=== PATIENT | female | born 1950 | race Caucasian/White ===

== ENCOUNTER → 2017-11-17 | Outpatient (CLI) | payer BC, MEDICARE ==
--- NOTE | 2017-11-17 13:07 | XR ---
EXAMINATION TYPE: XR chest 2V DATE OF EXAM: 11/17/2017 COMPARISON: NONE HISTORY: Shortness of breath TECHNIQUE: Frontal and lateral views of the chest are obtained. FINDINGS: Scattered senescent parenchymal changes noted. Hyperinflation compatible with COPD. No evidence for infiltrate. No evidence for atelectasis. Heart size is stable. Mediastinal structures are stable and grossly unremarkable. No evidence for hilar prominence. Degenerative changes dorsal spine. IMPRESSION: 1. No evidence for acute pulmonary disease.
== END | disposition home or self-care (01) ==
LOC: RADXRMAIN 12:40
PROVIDERS: ATTEND Physician Assistant
DX: J44.9 Chronic obstructive pulmonary disease, unspecified (principal)
CPT/HCPCS: 71046

== ENCOUNTER 2019-10-14 03:18 | Observation (INO) | payer MEDICARE, BC ==
[2019-10-14] MEDS ORDERED: FAMOTIDINE 20 MG/2 ML VIAL IV STA (03:35)
[2019-10-14] MEDS ORDERED: MAG HYDROX/AL HYDROX/SIMETH 30 ML, HYOSCYAMINE ELIXIR 10 ML, LIDOCAINE VISCOUS 2% 10 ML PO STA ×3 (03:35)
--- NOTE | 2019-10-14 03:37 | ED ---
General Adult HPI - General Chief complaint: Chest Pain Stated complaint: Chest Pain Time Seen by Provider: 10/14/19 03:20 Source: patient, EMS, RN notes reviewed, old records reviewed Mode of arrival: ambulatory Limitations: no limitations - History of Present Illness Initial comments: 69-year-old female history of COPD presenting for evaluation of substernal chest pain. Pain is described as a burning in nature, worse with lying flat. Patient does have history of gastric reflux. She states this pain is been ongoing for at least a month but was more severe tonight. She reports associated dyspnea. No vomiting. No abdominal pain. No known history of coronary artery disease. - Related Data Home Medications Medication Instructions Recorded Confirmed Albuterol Sulfate [Ventolin HFA] 2 puff INHALATION RT-Q4H PRN 10/14/19 10/14/19 EPINEPHrine (Auto Inject) [Epipen] 0.3 mg IM ONCE PRN 10/14/19 10/14/19 Fluticasone Nasal [place] [Flonase 1 spr EA NOSTRIL DAILY PRN 10/14/19 10/14/19 Nasal [place]] Fluticasone/Vilanterol [Breo 1 puff INHALATION RT-DAILY 10/14/19 10/14/19 Ellipta 100-25 Mcg Inhaler] Allergies Allergy/AdvReac Type Severity Reaction Status Date / Time bee venom protein (honey bee) Allergy Anaphylaxis Verified 10/14/19 08:07 Review of Systems ROS Statement: Those systems with pertinent positive or pertinent negative responses have been documented in the HPI. ROS Other: All systems not noted in ROS Statement are negative. Past Medical History Past Medical History: COPD History of Any Multi-Drug Resistant Organisms: None Reported Past Surgical History: Orthopedic Surgery, Tonsillectomy Past Psychological History: No Psychological Hx Reported Smoking Status: Current every day smoker Past Alcohol Use History: None Reported Past Drug Use History: Marijuana - Past Family History Father Family Medical History: Coronary Artery Disease (CAD) Mother Family Medical History: Cancer Additional Family Medical History / Comment(s): breast CA General Exam Limitations: no limitations General appearance: alert, in no apparent distress Head exam: Present: atraumatic, normocephalic Eye exam: Present: normal appearance, PERRL ENT exam: Present: normal exam Neck exam: Present: normal inspection. Absent: tenderness Respiratory exam: Present: decreased breath sounds. Absent: respiratory distress Cardiovascular Exam: Present: regular rate, normal rhythm GI/Abdominal exam: Present: soft. Absent: distended, tenderness, guarding Extremities exam: Present: normal inspection, normal capillary refill. Absent: pedal edema, calf tenderness Neurological exam: Present: alert, oriented X3, CN II-XII intact. Absent: motor sensory deficit Psychiatric exam: Present: normal affect, normal mood Skin exam: Present: warm, dry, intact. Absent: cyanosis, diaphoretic Course Vital Signs 10/14/19 10/14/19 10/14/19 03:20 03:29 04:29 Temperature 97.8 F Pulse Rate 69 62 60 Respiratory 24 20 20 Rate Blood Pressure 123/74 120/93 104/60 O2 Sat by Pulse 96 95 95 Oximetry 10/14/19 10/14/19 10/14/19 04:56 05:06 05:25 Temperature Pulse Rate 56 L 58 L 58 L Respiratory 20 Rate Blood Pressure 113/88 O2 Sat by Pulse 95 Oximetry EKG Findings - EKG Comments: EKG Findings:: EKG: Sinus bradycardia, rate of 59, NC interval 136, QRS duration 74, QTC 421, no ST segment elevation. Medical Decision Making - Medical Decision Making 69-year-old female with substernal chest pain, ongoing for the past one month but worse this evening. EKG is sinus rhythm without ST segment elevation. Chest x-ray showing some hyperinflation no acute findings. She has normal CBC, normal CMP, negative initial troponin. Given her risk factor she will be kept in observation for serial cardiac enzymes, telemetry, cardiology consultation. - Lab Data Result diagrams: 10/14/19 03:31 10/14/19 03:31 Lab Results 10/14/19 10/14/19 10/14/19 Range/Units 03:31 03:31 03:31 WBC 7.2 (3.8-10.6) k/uL RBC 4.47 (3.80-5.40) m/uL Hgb 13.1 (11.4-16.0) gm/dL Hct 41.0 (34.0-46.0) % MCV 91.6 (80.0-100.0) fL MCH 29.4 (25.0-35.0) pg MCHC 32.1 (31.0-37.0) g/dL RDW 12.7 (11.5-15.5) % Plt Count 312 (150-450) k/uL Neutrophils % 64 % Lymphocytes % 24 % Monocytes % 6 % Eosinophils % 2 % Basophils % 1 % Neutrophils # 4.6 (1.3-7.7) k/uL Lymphocytes # 1.7 (1.0-4.8) k/uL Monocytes # 0.4 (0-1.0) k/uL Eosinophils # 0.2 (0-0.7) k/uL Basophils # 0.1 (0-0.2) k/uL PT 10.2 (9.0-12.0) sec INR 1.0 (<1.2) APTT 25.5 (22.0-30.0) sec Sodium 135 L (137-145) mmol/L Potassium 3.8 (3.5-5.1) mmol/L Chloride 106 (98-107) mmol/L Carbon Dioxide 23 (22-30) mmol/L Anion Gap 6 mmol/L BUN 7 (7-17) mg/dL Creatinine 0.72 (0.52-1.04) mg/dL Est GFR (CKD-EPI)AfAm >90 (>60 ml/min/1.73 sqM) Est GFR (CKD-EPI)NonAf 88 (>60 ml/min/1.73 sqM) Glucose 101 H (74-99) mg/dL Calcium 9.1 (8.4-10.2) mg/dL Magnesium 1.8 (1.6-2.3) mg/dL Total Bilirubin 0.4 (0.2-1.3) mg/dL AST 25 (14-36) U/L ALT 15 (4-34) U/L Alkaline Phosphatase 44 (38-126) U/L Troponin I (0.000-0.034) ng/mL Total Protein 6.1 L (6.3-8.2) g/dL Albumin 4.0 (3.5-5.0) g/dL Lipase 53 (23-300) U/L 10/14/19 Range/Units 03:31 WBC (3.8-10.6) k/uL RBC (3.80-5.40) m/uL Hgb (11.4-16.0) gm/dL Hct (34.0-46.0) % MCV (80.0-100.0) fL MCH (25.0-35.0) pg MCHC (31.0-37.0) g/dL RDW (11.5-15.5) % Plt Count (150-450) k/uL Neutrophils % % Lymphocytes % % Monocytes % % Eosinophils % % Basophils % % Neutrophils # (1.3-7.7) k/uL Lymphocytes # (1.0-4.8) k/uL Monocytes # (0-1.0) k/uL Eosinophils # (0-0.7) k/uL Basophils # (0-0.2) k/uL PT (9.0-12.0) sec INR (<1.2) APTT (22.0-30.0) sec Sodium (137-145) mmol/L Potassium (3.5-5.1) mmol/L Chloride (98-107) mmol/L Carbon Dioxide (22-30) mmol/L Anion Gap mmol/L BUN (7-17) mg/dL Creatinine (0.52-1.04) mg/dL Est GFR (CKD-EPI)AfAm (>60 ml/min/1.73 sqM) Est GFR (CKD-EPI)NonAf (>60 ml/min/1.73 sqM) Glucose (74-99) mg/dL Calcium (8.4-10.2) mg/dL Magnesium (1.6-2.3) mg/dL Total Bilirubin (0.2-1.3) mg/dL AST (14-36) U/L ALT (4-34) U/L Alkaline Phosphatase (38-126) U/L Troponin I <0.012 (0.000-0.034) ng/mL Total Protein (6.3-8.2) g/dL Albumin (3.5-5.0) g/dL Lipase (23-300) U/L Disposition Clinical Impression: Chest pain Disposition: ADMITTED IP TO THIS [facility] Condition: Stable Is patient prescribed a controlled substance at d/c from ED?: No Decision to Admit Reason: Admit from EC Decision Date: 10/14/19 Decision Time: 04:48
[2019-10-14 03:41] LABS: Basophils # (A) 0.1 k/uL (0-0.2); Basophils % (A) 1 %; Eosinophils # (A) 0.2 k/uL (0-0.7); Eosinophils % (A) 2 %; HGB 13.1 gm/dL (11.4-16.0); Lymphocytes # (A) 1.7 k/uL (1.0-4.8); Lymphocytes % (A) 24 %; MCH 29.4 pg (25.0-35.0); MCHC 32.1 g/dL (31.0-37.0); MCV 91.6 fL (80.0-100.0); Mean Platelet Volume 7.3; Monocytes # (A) 0.4 k/uL (0-1.0); Monocytes % (A) 6 %; Neutrophils # (A) 4.6 k/uL (1.3-7.7); Neutrophils % (A) 64 %; Platelet Count 312 k/uL (150-450); RBC 4.47 m/uL (3.80-5.40); RDW 12.7 % (11.5-15.5); WBC 7.2 k/uL (3.8-10.6)
[2019-10-14 03:50] LABS: Partial Thromboplastin Time 25.5 sec (22.0-30.0); Prothrombin Time 10.2 sec (9.0-12.0)
[2019-10-14 03:51] LABS: ALT 15 U/L (4-34); AST 25 U/L (14-36); African American GFR (CKD) >90 (>60 ml/min/1.73 sqM); Alkaline Phosphatase 44 U/L (38-126); Anion Gap 6 mmol/L; Blood Urea Nitrogen 7 mg/dL (7-17); Calcium 9.1 mg/dL (8.4-10.2); Carbon Dioxide 23 mmol/L (22-30); Chloride 106 mmol/L (98-107); Glucose 101 mg/dL (74-99); Magnesium 1.8 mg/dL (1.6-2.3); Non-African American GFR(CKD) 88 (>60 ml/min/1.73 sqM); Potassium 3.8 mmol/L (3.5-5.1); Sodium 135 mmol/L (137-145); Total Bilirubin 0.4 mg/dL (0.2-1.3); Total Protein 6.1 g/dL (6.3-8.2)
--- NOTE | 2019-10-14 04:00 | XR ---
EXAMINATION TYPE: XR chest 2V DATE OF EXAM: 10/14/2019 COMPARISON: 11/17/2017 HISTORY: Chest pain TECHNIQUE: FINDINGS: There is no heart failure nor confluent pneumonic infiltrate. Costophrenic angles are clear . Heart size is normal. There are chest leads. Bony thorax appears intact. IMPRESSION: No active cardiopulmonary disease. No change.
[2019-10-14] MEDS ORDERED: ASPIRIN 325 MG TAB PO STA (04:42)
[2019-10-14] MEDS ORDERED: MORPHINE SULFATE 4 MG/ML SYRINGE IVP STA (04:42)
[2019-10-14] MEDS ORDERED: ACETAMINOPHEN TAB 325 MG TAB PO PRN (04:45)
[2019-10-14] MEDS ORDERED: LORazepam 2 MG/ML INJ IV PRN (04:45)
[2019-10-14] MEDS ORDERED: NALOXONE 0.4 MG/ML 1 ML VIAL IV PRN (04:45)
[2019-10-14] MEDS ORDERED: IPRATROPIUM-ALBUTEROL 3 ML NEB INHALATION STA (04:45)
[2019-10-14] MEDS ORDERED: MORPHINE SULFATE 4 MG/ML SYRINGE IV PRN (04:45)
[2019-10-14] MEDS ORDERED: NITROGLYCERIN SL TABS 0.4 MG TAB SUBLINGUAL ONE (05:58)
[2019-10-14] MEDS: SODIUM CHLORIDE 0.9% 1,000 ML IV SCH (06:05)
--- NOTE | 2019-10-14 09:47 | P.CRDCN ---
History of Present Illness History of present illness: HISTORY OF PRESENTING ILLNESS This is a pleasant 69-year-old female past medical history significant for COPD and chronic nicotine dependence. She also admits to occasional mariju larry use. She denies prior history of coronary artery disease and does not follow regularly in the office with a quality assurance lead for any reason. We have been asked to see in consultation for chest pain. She describes a pain in the mid- sternal region with radiation to the left axilla and down the left arm. Has been occurring intermittently for the past 1-month. Associated with shortness of breath. Pain is exacerbated by laying flat and improves when she stands up and walks around. Over the last month will come infrequently and then she will be fine for a few days. However, over the weekend it has been constant and last night she could not get comfortable. She called EMS. On arrival to ED she was given SL nitro that did relieve her pain. DIAGNOSTICS EKG reveals sinus bradycardia heart rate of [address] or T wave abnormalities noted. Chest xray negative for an acute cardiopulmonary process. Laboratory reviewed, CBC unremarkable, sodium 135, potassium 3.8, creatinine 0.72, cardiac enzymes negative 2. She takes no daily cardiac medications. REVIEW OF SYSTEMS At the time of my exam: CONSTITUTIONAL: Denies fever or chills. CARDIOVASCULAR: Denies chest pain, shortness of breath, orthopnea, PND or palpitations. RESPIRATORY: Denies cough. GASTROINTESTINAL: Denies abdominal pain, diarrhea, constipation, nausea or vomiting. MUSCULOSKELETAL: Denies myalgias. NEUROLOGIC: Denies numbness, tingling or weakness. ENDOCRINE: Denies fatigue, weight change, polydipsia or polyurina. GENITOURINARY: Denies burning, hematuria or urgency with micturation. HEMATOLOGIC: Denies history of anemia or bleeding. PHYSICAL EXAMINATION Blood pressure 100/62 heart rate 59 afebrile and maintaining oxygen saturation on room air. CONSTITUTIONAL: No apparent distress. HEENT: Head is normocephalic. Pupils are equal, round. Sclerae anicteric. Mucous membranes of the mouth are moist. No JVD. No carotid bruit. CHEST EXAMINATION: Lungs are clear to auscultation. No chest wall tenderness is noted on palpation or with deep breathing. HEART EXAMINATION: Regular rate and rhythm. S1, S2 heard. No murmurs, gallops or rub. ABDOMEN: Soft, nontender. Positive bowel sounds. EXTREMITIES: 2+ peripheral pulses, no lower extremity edema and no calf tenderness. NEUROLOGIC EXAMINATION: Patient is awake, alert and oriented x3. ASSESSMENT Chest pain, atypical for angina. An acute coronary event has been ruled out. COPD Chronic nicotine dependence PLAN An acute coronary event has been ruled out with no EKG evidence of ischemia and negative cardiac enzymes. Obtain 2-D echocardiogram and Doppler study to assess cardiac structure and function. Perform stress echocardiogram to assess for stress-induced cardiac ischemia. Check lipid profile and treat accordingly. Recommend smoking cessation. Thank you kindly for this consultation. Nurse Practitioner note has been reviewed, I agree with a documented findings and plan of care. Patient was seen and examined. Past Medical History Past Medical History: COPD History of Any Multi-Drug Resistant Organisms: None Reported Past Surgical History: Orthopedic Surgery, Tonsillectomy Past Psychological History: No Psychological Hx Reported Smoking Status: Current every day smoker Past Alcohol Use History: None Reported Past Drug Use History: Marijuana - Past Family History Father Family Medical History: Coronary Artery Disease (CAD) Mother Family Medical History: Cancer Additional Family Medical History / Comment(s): breast CA Medications and Allergies Home Medications Medication Instructions Recorded Confirmed Type Albuterol Sulfate [Ventolin HFA] 2 puff INHALATION RT-Q4H PRN 10/14/19 10/14/19 History EPINEPHrine (Auto Inject) [Epipen] 0.3 mg IM ONCE PRN 10/14/19 10/14/19 History Fluticasone Nasal [place] [Flonase 1 spr EA NOSTRIL DAILY PRN 10/14/19 10/14/19 History Nasal [place]] Fluticasone/Vilanterol [Breo 1 puff INHALATION RT-DAILY 10/14/19 10/14/19 History Ellipta 100-25 Mcg Inhaler] Allergies Allergy/AdvReac Type Severity Reaction Status Date / Time bee venom protein (honey bee) Allergy Anaphylaxis Verified 10/14/19 08:07 Physical Exam Vitals: Vital Signs Temp Pulse Pulse Resp BP BP Pulse Ox 10/14/19 06:10 100/62 10/14/19 06:08 89/48 10/14/19 05:47 97.9 F 59 L 18 114/71 94 L 10/14/19 05:25 58 L 20 113/88 95 07/20/20 05:06 58 L 10/14/19 04:56 56 L 10/14/19 04:29 60 20 104/60 95 10/14/19 03:29 62 20 120/93 95 10/14/19 03:20 97.8 F 69 24 123/74 96 Intake and Output 10/13/19 10/14/19 10/14/19 22:59 06:59 14:59 Other: Weight 63.503 kg Results 10/14/19 03:31 10/14/19 03:31 Cardiac Enzymes 10/14/19 10/14/19 10/14/19 Range/Units 03:31 03:31 05:53 AST 25 (14-36) U/L Troponin I <0.012 <0.012 (0.000-0.034) ng/mL Coagulation 10/14/19 Range/Units 03:31 PT 10.2 (9.0-12.0) sec APTT 25.5 (22.0-30.0) sec CBC 10/14/19 Range/Units 03:31 WBC 7.2 (3.8-10.6) k/uL RBC 4.47 (3.80-5.40) m/uL Hgb 13.1 (11.4-16.0) gm/dL Hct 41.0 (34.0-46.0) % Plt Count 312 (150-450) k/uL Comprehensive Metabolic Panel 10/14/19 Range/Units 03:31 Sodium 135 L (137-145) mmol/L Potassium 3.8 (3.5-5.1) mmol/L Chloride 106 (98-107) mmol/L Carbon Dioxide 23 (22-30) mmol/L BUN 7 (7-17) mg/dL Creatinine 0.72 (0.52-1.04) mg/dL Glucose 101 H (74-99) mg/dL Calcium 9.1 (8.4-10.2) mg/dL AST 25 (14-36) U/L ALT 15 (4-34) U/L Alkaline Phosphatase 44 (38-126) U/L Total Protein 6.1 L (6.3-8.2) g/dL Albumin 4.0 (3.5-5.0) g/dL Current Medications Generic Name Dose Route Start Last Admin Trade Name Freq PRN Reason Stop Dose Admin Acetaminophen 650 mg 10/14/19 04:45 Tylenol Tab PO Q6HR PRN Mild Pain or Fever > 100.5 Sodium Chloride 1,000 mls @ 20 mls/hr 10/14/19 04:45 10/14/19 06:05 Saline 0.9% IV 20 mls/hr .Q24H ERI Administration Lorazepam 0.5 mg 10/14/19 04:45 Ativan IV Q6HR PRN Anxiety Morphine Sulfate 4 mg 10/14/19 04:45 Morphine Sulfate (Inj) IV Q4HR PRN Severe Pain Naloxone HCl 0.2 mg 10/14/19 04:45 Narcan IV Q2M PRN Opioid Reversal Pantoprazole Sodium 40 mg 10/14/19 09:00 Protonix IV DAILY ERI Intake and Output 10/13/19 10/14/19 10/14/19 22:59 06:59 14:59 Other: Weight 63.503 kg 10/14/19 03:31 10/14/19 03:31
[2019-10-14 10:09] LABS: Cholesterol 183 mg/dL (<200); HDL Cholesterol 70 mg/dL (40-60); LDL Cholesterol,Calculated 99 mg/dL (0-99); Triglycerides 68 mg/dL (<150)
[2019-10-14] MEDS ORDERED: REGADENOSON 0.4 MG/5 ML SYRINGE IV ONE (10:45)
[2019-10-14] MEDS ORDERED: CAFFEINE CITRATE 60 MG/3 ML VIAL IV PRN (10:45)
[2019-10-14] MEDS ORDERED: AMINOPHYLLINE 500 MG/20 ML VIAL IV PRN (10:45)
--- NOTE | 2019-10-14 11:26 | ECHOF ---
Referral Reason:cp and sob MEASUREMENTS -------- HEIGHT: 165.1 cm WEIGHT: 63.5 kg BP: RVIDd: 3.5 cm (< 3.3) IVSd: 0.9 cm (0.6 - 1.1) LVIDd: 4.4 cm (3.9 - 5.3) LVPWd: 1.1 cm (0.6 - 1.1) IVSs: 1.2 cm LVIDs: 3.0 cm LVPWs: 1.7 cm LA Diam: 3.7 cm (2.7 - 3.8) Ao Diam: 3.2 cm (2.0 - 3.7) AV Cusp: 1.8 cm (1.5 - 2.6) MV EXCURSION: 19.783 mm (> 18.000) MV EF SLOPE: 107 mm/s (70 - 150) EPSS: 0.2 cm MV E Reynaldo: 0.71 m/s MV DecT: 222 ms MV A Reynaldo: 0.52 m/s MV E/A Ratio: 1.37 RAP: 5.00 mmHg RVSP: 22.66 mmHg FINDINGS -------- Sinus rhythm. This was a technically good study. The left ventricular size is normal. Left ventricular wall thickness is normal. Overall left vent ricular systolic function is low-normal with, an EF between 50 - 55 %. Basal inferior LV wall motio n is hypokinetic. The right ventricle is normal in size. The left atrial size is normal. The right atrial size is normal. Interatrial and interventricular septum intact. The aortic valve is trileaflet, and appears structurally normal. No aortic stenosis or regurgitation. Mild mitral regurgitation is present. Mild tricuspid regurgitation present. Right ventricular systolic pressure is normal at < 35 mmHg. There is no pulmonic regurgitation present. The aortic root size is normal. There is no pericardial effusion. CONCLUSIONS -------- 1. Sinus rhythm. 2. This was a technically good study. 3. The left ventricular size is normal. 4. Left ventricular wall thickness is normal. 5. Overall left ventricular systolic function is low-normal with, an EF between 50 - 55 %. 6. Basal inferior LV wall motion is hypokinetic. 7. The right ventricle is normal in size. 8. The left atrial size is normal. 9. The right atrial size is normal. 10. Mild mitral regurgitation is present. 11. Mild tricuspid regurgitation present. LEGAL SUPPORT ASSISTANT: Chelsey Burger RDCS
[2019-10-14] MEDS: PANTOPRAZOLE 40 MG/10 ML VIAL IV SCH (13:52)
--- NOTE | 2019-10-14 14:04 | NM ---
EXAMINATION TYPE: NM stress lexiscan cardiolite DATE OF EXAM: 10/14/2019 COMPARISON: NONE HISTORY: Chest pain TECHNIQUE: After the intravenous administration of 9.98 mCi Tc 99m Sestamibi - Cardiolite resting SP ECT images acquired 85 minutes post injection. The patient received 0.4mg Lexiscan, 26.6 mCi Tc 99m Sestamibi - Stress images obtained [address] injection FINDINGS: Review of stress and rest SPECT images demonstrates some decreased uptake along the left ventricular anteroapical wall on stress and rest images. Gated analysis shows normal wall motion with an estimat ed left ventricular ejection fraction of 67 %. IMPRESSION: No scintigraphic evidence for reversible ischemia. There may been prior infarct along the anterior wa ll left ventricle. Consider echocardiographic correlation for elevated ejection fraction.
--- NOTE | 2019-10-14 15:14 | P.HPIM ---
History of Present Illness H&P Date: 10/14/19 Chief Complaint: Left-sided chest pain Mrs. Ding is a 63-year-old female with a past medical history of COPD, who is a current smoker, who follows with the Dr. Delfino Valenzuela, coming to the hospital with a chief complaint of left-sided chest pain. Patient states that the pain is mostly substernal, radiating to the upper chest. She denies having any associated symptoms of nausea vomiting or dizziness. She states that the pain has been going on for at least a month, but last night it was very severe that she had to come to the emergency. She mentions that the pain is more when she lays flat and improves with standing up and walking around. Patient denies having any sore throat. No nausea or vomiting or abdominal pain. Denies having any relationship with food. Patient denies having any fevers chills or rigors. No cough or difficulty in breathing. In the emergency patient had chest x-ray done showing no active cardiopulmonary disease. EKG done showing sinus bradycardia. Heart troponin less than 0.012. Patient was given sublingual nitro in the ED that gave her relief. Patient is admitted for further follow-up with cardiology consult. Review of Systems REVIEW OF SYSTEMS: PSYCH: No anxiety or depression NEURO:No c/o weakness of the extremties, No facial droop, No speech abnormalities. VASCULAR: no edema HEMATOLOGIC: No history of easy bleeding and bruising . No recent infections . RESPIRATORY: No cough, No SOB, No chest discomfort. IMMUNE: No infections INTEGUMENT: no rashes OPHTHALMOLOGIC: No blurry vision and no eye discharge : No dysuria or hematuria CARDIAC: No chest pain , shortness of breath , paroxysmal nocturnal dyspnea MUSCULOSKELETAL : No Aches or pains in the joints or muscles. GI: No abdominal pain, Nausea or vomiting. No constipation or diarrhea. Past Medical History Past Medical History: COPD History of Any Multi-Drug Resistant Organisms: None Reported Past Surgical History: Orthopedic Surgery, Tonsillectomy Past Psychological History: No Psychological Hx Reported Smoking Status: Current every day smoker Past Alcohol Use History: None Reported Past Drug Use History: Marijuana - Past Family History Father Family Medical History: Coronary Artery Disease (CAD) Mother Family Medical History: Cancer Additional Family Medical History / Comment(s): breast CA Medications and Allergies Home Medications Medication Instructions Recorded Confirmed Type Albuterol Sulfate [Ventolin HFA] 2 puff INHALATION RT-Q4H PRN 10/14/19 10/14/19 History EPINEPHrine (Auto Inject) [Epipen] 0.3 mg IM ONCE PRN 10/14/19 10/14/19 History Fluticasone Nasal [place] [Flonase 1 spr EA NOSTRIL DAILY PRN 10/14/19 10/14/19 History Nasal [place]] Fluticasone/Vilanterol [Breo 1 puff INHALATION RT-DAILY 10/14/19 10/14/19 History Ellipta 100-25 Mcg Inhaler] Allergies Allergy/AdvReac Type Severity Reaction Status Date / Time bee venom protein (honey bee) Allergy Anaphylaxis Verified 10/14/19 08:07 Physical Exam Vitals: Vital Signs Temp Pulse Pulse Resp BP BP Pulse Ox 10/14/19 09:00 50 L 18 10/14/19 08:04 97.5 F L 50 L 18 101/70 97 10/14/19 06:10 100/62 10/14/19 06:08 89/48 10/14/19 05:47 97.9 F 59 L 18 114/71 94 L 10/14/19 05:25 58 L 20 113/88 95 10/14/19 05:06 58 L 10/14/19 04:56 56 L 10/14/19 04:29 60 20 104/60 95 10/14/19 03:29 62 20 120/93 95 10/14/19 03:20 97.8 F 69 24 123/74 96 Intake and Output 10/13/19 10/14/19 10/14/19 22:59 06:59 14:59 Other: Weight 63.503 kg PHYSICAL EXAM GEN. APPEARANCE: alert, in no apparent distress HEAD EXAM: Normocephalic/atraumatic. EYE EXAM: Pupils round and reactive to light. No icterus. No pallor. ENT EXAM: Oral mucous membrane is moist NECK EXAM: No thyromegaly RESPIRATORY EXAM: Bilateral breath sounds are positive. No wheeze or crackles. CARDIOVASCULAR EXAM: S1 and S2 heard. GI/ABDOMINAL EXAM: Abdomen is soft. Nontender. No organomegaly. No guarding or rigidity. EXTREMITIES EXAM: No edema. No cyanosis. No clubbing. NEUROLOGICAL EXAM: alert, oriented X3, no focal neurological deficits PSYCHIATRIC EXAM: normal affect, normal mood SKIN EXAM: warm, dry, intact, normal color. Results CBC & Chem 7: 10/14/19 03:31 10/14/19 03:31 Labs: Abnormal Lab Results - Last 24 Hours (Table) 10/14/19 10/14/19 Range/Units 03:31 05:53 Sodium 135 L (137-145) mmol/L Glucose 101 H (74-99) mg/dL Total Protein 6.1 L (6.3-8.2) g/dL HDL Cholesterol 70 H (40-60) mg/dL Thrombosis Risk Factor Assmnt - Choose All That Apply Any of the Below Risk Factors Present?: Yes Each Factor Represents 1 point: Abnormal pulmonary function (COPD) Other Risk Factors: Yes Each Risk Factor Represents 2 Points: Age 61-74 years Thrombosis Risk Factor Assessment Total Risk Factor Score: 3 Thrombosis Risk Factor Assessment Level: Moderate Risk Assessment and Plan Assessment: ASSESSMENT Atypical chest pain COPD Current every day smoker PLAN: Patient is admitted for acute coronary syndrome rule out with serial EKGs and troponins. Cardiology on board ordered a 2-D echogram and stress echocardiogram. Results of the stress echocardiogram negative for inducible ischemia. The echocardiogram done showing EF of 55-50%, a subtle inferior LV wall motion hypokinesis. Patient states that she still continues to have chest pain 7 out of 10 currently. So we'll monitor the patient for 24 hours and possible discharge home tomorrow. The treatment plan was discussed with the patient in detail at bedside.
[2019-10-15 04:07] VITALS: TEMP 98.2
[2019-10-15] MEDS: SODIUM CHLORIDE 0.9% 1,000 ML IV SCH (07:57)
[2019-10-15] MEDS: PANTOPRAZOLE 40 MG/10 ML VIAL IV SCH (08:06)
[2019-10-15 08:40] VITALS: BP 119/76; PULSE 55; RESP 16
--- NOTE | 2019-10-15 10:07 | P.STRESS ---
- Stress Test Note Stress Test Results/Findings: Exam Performed: NM stress lexiscan cardiolite Exam Date: 10/14/19 Reason for Exam: CP Height: 5 ft 5 in Weight: 63.5 kg Protocol: LEXISCAN CARDIOLITE Stage: NA Duration of Exercise: NA Resting Heart Rate: 57 Resting Blood Pressure: 104/66 Maximum Achieved Heart Rate: 99 Maximum Achieved Blood Pressure: 132/71 85% PMHR: 130 100% PMHR: 153 METS: NA Technologist Comment: Stress Test Results/Findings: This is a 69-year-old female with history of of smoking was admitted to the hospital chest pain and shortness of breath. Stress data: Baseline EKG showed sinus bradycardia with a diffuse baseline artifact. A standard dose of Lexiscan was infused EKGs taken during and after infusion did not reveal any significant changes from the baseline. Occasional PVCs were noted. Final impression #1. Negative Lexiscan stress test #2. Report on the nuclear images to be given by the radiologist.
--- NOTE | 2019-10-15 10:46 | P.DS ---
Providers Date of admission: 10/14/19 04:45 Attending physician: Osiel Rodriguez Consults: 10/14/19 04:46 Consult Physician Routine Consulting Provider: Nay Bcek Consult Reason/Comments: cp Do you want consulting provider notified?: Yes Primary care physician: Delfino Valenzuela [facility] Course: Diagnoses: Mrs. Ding is a 63-year-old female with a past medical history of COPD, who is a current smoker, who follows with the Dr. Delfino Valenzuela, coming to the hospital with a chief complaint of left-sided chest pain. 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 This morning the nurse called us stating the patient's wants to be discharged otherwise she will leave AMA When I came to see the patient she was sitting in bed, she was calm but look anxious, she denies to me any chest pain or abdominal pain, no nausea vomiting, no change in urine or bowel habits, no headache or dizziness and she wants to be discharged today (I am going home today either way), however patient stated that she is back to her normal state and she wants to be discharged today because she wants to care for her . I asked patient several times whether she has chest pain abdominal pain and each time she confirms to me she is not Also patient denies depression or suicidal or homicidal ideation Since the patient has no other symptoms and patient does not want any test and just want to be discharged, then we'll discharge the patient with a recommendation for outpatient follow-up Patient was cleared for discharge by cardiology Problems and management plan were discussed with the patient and he verbalized understanding and acceptance Patient was found stable and can be discharged home however he needs follow-up as an outpatient. Patient was instructed to follow up with PCP Dr. Valenzuela within one week and patient agrees, and patient was instructed to follow up with Dr. López in 2 weeks but she wasn't sure if she wanted to that. Patient wants to make her own appointments Also patient does not want any scripts on going home Gen: patient is a AAOx3, no distress CVS: S1-S2, RRR, no murmur Lungs: B/L CTA, no wheezing Abdomen: soft, no distention, no tenderness, positive bowel sounds Extremity: no leg edema or induration Time spent more than 35 minutes Patient Condition at Discharge: Stable Plan - Discharge Summary New Discharge Prescriptions: No Action Fluticasone/Vilanterol [Breo Ellipta 100-25 Mcg Inhaler] 1 puff INHALATION RT-DAILY Fluticasone Nasal [place] [Flonase Nasal [place]] 1 spr EA NOSTRIL DAILY PRN PRN Reason: Allergy Symptoms EPINEPHrine (Auto Inject) [Epipen] 0.3 mg IM ONCE PRN PRN Reason: Anaphylaxis Albuterol Sulfate [Ventolin HFA] 2 puff INHALATION RT-Q4H PRN PRN Reason: Shortness Of Breath Discharge Medication List Albuterol Sulfate [Ventolin HFA] 2 puff INHALATION RT-Q4H PRN 10/14/19 [History] EPINEPHrine (Auto Inject) [Epipen] 0.3 mg IM ONCE PRN 10/14/19 [History] Fluticasone Nasal [place] [Flonase Nasal [place]] 1 spr EA NOSTRIL DAILY PRN 10/14/19 [History] Fluticasone/Vilanterol [Breo Ellipta 100-25 Mcg Inhaler] 1 puff INHALATION RT- DAILY 10/14/19 [History] Follow up Appointment(s)/Referral(s): Delfino Valenzuela MD [Primary Care Provider] - 1-2 days Nena López MD [STAFF PHYSICIAN] - 2 Weeks (office aware that pt wants to see Dr. Beck, office will call pt at home with appointment time and date once ok with Dr. Beck. )
--- NOTE | 2019-10-15 11:04 | P.PN ---
Subjective HISTORY OF PRESENTING ILLNESS This is a pleasant 69-year-old female past medical history significant for COPD and chronic nicotine dependence. She also admits to occasional marijuana use. She denies prior history of coronary artery disease and does not follow regularly in the office with a tax clerk for any reason. She is seen and examined sitting up in bed in no acute distress. She denies any further symptoms of chest discomfort. The patient states "if it means that can go home I don't have pain "she underwent a Lexiscan stress test yesterday that was negative for reversible ischemia with possible prior infarct along the anterior wall. Echocardiogram revealed preserved LV systolic function with ejection fraction 50-55% with basal inferior wall motion hypokinesia noted, mild MR and mild TR. Blood pressure 119/76 heart rate 55 afebrile and maintaining oxygen saturation on room air. Laboratory data reviewed, LDL 99, HDL 70. PHYSICAL EXAMINATION CONSTITUTIONAL: No apparent distress. HEENT: Head is normocephalic. Pupils are equal, round. Sclerae anicteric. Mucous membranes of the mouth are moist. No JVD. No carotid bruit. CHEST EXAMINATION: Lungs are clear to auscultation. No chest wall tenderness is noted on palpation or with deep breathing. HEART EXAMINATION: Regular rate and rhythm. S1, S2 heard. No murmurs, gallops or rub. EXTREMITIES: 2+ peripheral pulses, no lower extremity edema and no calf tendern ess. ASSESSMENT Chest pain, atypical for angina. An acute coronary event has been ruled out. COPD Chronic nicotine dependence PLAN Stable for discharge from a cardiac perspective. Recommend smoking cessation. Follow up in the office with Dr. López in 2 weeks. Nurse Practitioner note has been reviewed, I agree with a documented findings and plan of care. Patient was seen and examined. Objective - Vital Signs Vital signs: Vital Signs Temp 98.2 F 10/15/19 08:05 Pulse 55 L 10/15/19 08:39 Resp 16 10/15/19 08:39 BP 119/76 10/15/19 08:05 Pulse Ox 94 L 10/15/19 08:05 Intake & Output 10/14/19 10/15/19 10/15/19 18:59 06:59 18:59 Intake Total 160 240 Balance 160 240 Weight 63.5 kg Intake: Intake, IV Titration 160 Amount Sodium Chloride 0.9% 1, 160 000 ml @ 20 mls/hr IV . Q24H [facility] Rx#:[id number] Oral 240 Other: Voiding Method Toilet Toilet # Voids 1 1 - Labs CBC & Chem 7: 10/14/19 03:31 10/14/19 03:31
== END 2019-10-15 11:37 | disposition home or self-care (01) ==
LOC: EC 03:18 → 3NCARDOBS 04:45
PROVIDERS: ADMIT Hospitalist; ATTEND Hospitalist
DX: R07.89 Other chest pain (principal); J44.9 Chronic obstructive pulmonary disease, unspecified; K21.9 Gastro-esophageal reflux disease without esophagitis; R00.1 Bradycardia, unspecified; I08.1 Rheumatic disorders of both mitral and tricuspid valves; F17.200 Nicotine dependence, unspecified, uncomplicated; F12.90 Cannabis use, unspecified, uncomplicated; Z20.828 Contact with and (suspected) exposure to other viral communicable diseases; Z79.51 Long term (current) use of inhaled steroids; Z79.899 Other long term (current) drug therapy; Z91.030 Bee allergy status; Z82.49 Family history of ischemic heart disease and other diseases of the circulatory system; Z80.3 Family history of malignant neoplasm of breast
CPT/HCPCS: 96375; 96376; 96374; 99285; 36415; 94640; 93005; 93017; 93306; 80061; 80053; 83690; 83735; 84484; 85025; 85610; 85730; 71046; 78452; G0378 ×2; U0003; A9500; J2270; J2785; C9113 ×2

== ENCOUNTER → 2019-12-06 | Outpatient (CLI) | payer MEDICARE, BC ==
--- NOTE | 2019-12-06 12:46 | CT ---
EXAMINATION TYPE: CT chest wo con DATE OF EXAM: 12/06/2019 COMPARISON: None HISTORY: COPD, shortness of breath. CT DLP: [address] of the chest was performed with lung and mediastinal window settings submitted. The la ck of contrast limits evaluation of the vascular, mediastinal and parenchymal structures including th e upper abdomen. LUNGS: Moderate centrilobular emphysema. No evidence for a focal consolidation. No evidence for fibro sis or bronchiectasis. No evidence for nodule or mass. MEDIASTINUM/TONEY: Thoracic aorta is of normal caliber with limited evaluation given lack of contrast . The heart is not enlarged. No evidence for mediastinal mass. No lymph nodes greater than 1cm. UPPER ABDOMEN: No significant abnormality is seen. OTHER: No significant other abnormality. IMPRESSION: 1. Moderate upper lobe centrilobular emphysema.
== END | disposition home or self-care (01) ==
LOC: RADCTMAIN 12:08
PROVIDERS: ATTEND Internal Medicine Critical Care Medicine
DX: J43.2 Centrilobular emphysema (principal)
CPT/HCPCS: 71250

== ENCOUNTER → 2020-01-14 | Outpatient (CLI) | payer MEDICARE, BC | END | disposition home or self-care (01) | LOC: CPPFTMAIN 08:53 | PROVIDERS: ATTEND Internal Medicine Critical Care Medicine | DX: J44.9 Chronic obstructive pulmonary disease, unspecified (principal) | CPT/HCPCS: 94060; 94726; 94729 ==